=== PATIENT | male | born 1995 | race Caucasian/White ===

== ENCOUNTER 2017-02-15 13:18 | Inpatient (IN) | payer OTHER ==
[~2017-02-15] VITALS: Ht 165.1 cm; Wt 78.6 kg
[2017-02-15 14:54] LABS: EOSINOPHIL (%) 1.9 % (0-5); EOSINOPHIL COUNT 0.2 K/uL (0-0.3); HEMATOCRIT 43.6 % (38.0-50.0); IMMATURE GRANULOCYTE (%) 0.3 % (0.0-0.7); INSTRUMENT ABS NEUTROPHIL CT 4.6 K/uL; LYMPHOCYTE COUNT 2.4 K/uL (1.0-2.8); MCHC 33.9 G/DL (30.0-36.0); MCV 85.3 FL (86-99); MEAN PLAT.VOLUME 11.8 uM^3 (9.0-12.4); MONOCYTE (%) 9.3 % (3-12); MONOCYTE COUNT 0.7 K/uL (0-0.8); NEUTROPHIL (%) 57.7 % (45-76); NEUTROPHIL COUNT 4.6 K/uL (1.8-6.4); PLATELET COUNT 162 K/uL (156-360); RBC DIS.WIDTH-CV 12.5 % (11.8-14.6); RBC DIS.WIDTH-SD 38.5 % (39-53); RED BLOOD COUNT 5.11 M/uL (4.00-5.50); WHITE BLOOD COUNT 7.9 K/uL (4.1-10.2)
[2017-02-15 15:02] LABS: CHLORIDE 107 mEq/L (99-109); SODIUM 140 mEq/L (136-147)
[2017-02-15 15:04] LABS: GLUCOSE 91 mg/dL (70-99)
[2017-02-15 15:06] LABS: ANION GAP 6 MEQ/L (2-14)
[2017-02-15 15:07] LABS: SERUM ETHYL ALCOHOL < 10 mg/dL
[2017-02-15 15:09] LABS: UREA NITROGEN (BUN) 12 mg/dL (9-23)
[2017-02-15 15:10] LABS: GFR ESTIMATE (CALCULATED) > 59 mL/min/
[2017-02-15 15:49] LABS: ADD MIUA? YES; BILIRUBIN NEGATIVE; BLOOD NEGATIVE; COLOR YELLOW ((YELLOW)); GLUCOSE (STRIP) NEGATIVE; KETONES NEGATIVE; LEUKOCYTES NEGATIVE; NITRITE NEGATIVE; PROTEIN (STRIP) 30; SPECIFIC GRAVITY 1.025 (1.000-1.030); UROBILINOGEN 0.2 MG/DL (0.2-1.0)
[2017-02-15 16:09] LABS: ADD MEDTOX COMMENT Y; AMPHETAMINE NEGATIVE (500 ng/mL); BARBITURATES NEGATIVE (200 ng/mL); BENZODIAZEPINES NEGATIVE (150 ng/mL); COCAINE NEGATIVE (150 ng/mL); INTERNAL CONTROLS VALID? YES; METHADONE NEGATIVE (200 ng/mL); METHAMPHETAMINE NEGATIVE (500 ng/mL); OPIATES (MORPHINE) NEGATIVE (100 ng/mL); OXYCODONE PRESUMPTIVE POSITIVE (100 ng/mL); PHENCYCLIDINE NEGATIVE (25 ng/mL); PROPOXYPHENE NEGATIVE (300 ng/mL); THC CANNABINOIDS PRESUMPTIVE POSITIVE (50 ng/mL); TRICYCLIC ANTIDEPRESSANTS NEGATIVE (300 ng/mL)
[2017-02-15 16:15] LABS: AMORPHOUS PHOSPHATE CRYSTALS 3+; BACTERIA NONE SEEN /HPF; CASTS NONE SEEN /LPF; CRYSTALS PRESENT; EPITHELIAL CELLS NONE SEEN /HPF; MUCUS NONE SEEN /LPF; RED BLOOD CELLS NONE SEEN /HPF (0-5); WHITE BLOOD CELLS NONE SEEN /HPF (0-5)
[2017-02-15 18:30] VITALS: BP 121/69
[2017-02-15 18:36] VITALS: BP 121/69
[2017-02-16 07:30] VITALS: BP 115/58
[2017-02-16 15:35] VITALS: BP 92/44
[2017-02-17 07:28] VITALS: BP 124/66
[2017-02-17 15:01] VITALS: BP 114/56
[2017-02-17 16:28] VITALS: BP 114/58
[2017-02-17 19:46] VITALS: BP 113/57
[2017-02-17 21:10] VITALS: BP 122/59
[2017-02-18 07:25] VITALS: BP 112/57
[2017-02-18 16:15] VITALS: BP 125/70
[2017-02-19 07:50] VITALS: BP 122/57
[2017-02-19] MEDS ORDERED: LEXAPRO20 MG PO (10:07)
[2017-02-19] MEDS ORDERED: ROPINIROLE HCL1 MG PO (10:08)
== END 2017-02-19 15:27 | disposition home or self-care (01) | DRG 885 ==
LOC: EME 13:18 → 1WEST 17:07 → EDOF 17:07 → 1WEST 18:22
PROVIDERS: Emergency Medicine
DX: F33.9 Major depressive disorder, recurrent, unspecified (principal); R44.0 Auditory hallucinations; F11.10 Opioid abuse, uncomplicated; F12.10 Cannabis abuse, uncomplicated; F17.210 Nicotine dependence, cigarettes, uncomplicated; F41.9 Anxiety disorder, unspecified; G25.81 Restless legs syndrome; Z81.8 Family history of other mental and behavioral disorders
CPT/HCPCS: 80048; 81003; 84999; 85025; 90839; 97150 GO; 97165 GO; 99281; 99285; G0480; Q0169; Q0177